=== PATIENT | male | born 1935 | race Caucasian/White ===

== ENCOUNTER 2019-03-02 12:58 | Day surgery (SDC) | payer MEDICARE, BC ==
[~2019-03-02] VITALS: Ht 172.7 cm; Wt 109.5 kg
[2019-03-02] VITALS (10 sets, daily range): BP systolic 138–177; BP diastolic 72–83
[~2019-03-02 12:58] MED LIST: ATOR40TA PO; BACL10TA2 PO; FURO-150 PO; HYT1T PO; LORA-512 PO; MULT-342 PO; OMEP-84 PO; POTA8TAB8 PO; VITC500T PO; meloxicam PO
[2019-03-02] MEDS ORDERED: diphenhydrAMINE 50 mg/ml inj ONE (13:21)
[2019-03-02] MEDS ORDERED: MIDAZolam 5mg/5ml vial ONE (13:21)
[2019-03-02] MEDS ORDERED: meperidine/PF 100mg/ml syringe ONE (13:21)
[2019-03-02] MEDS ORDERED: fentaNYL/PF 50MCG/1 ML 2ML syringe ONE ×2 (13:21→14:32)
[2019-03-02] MEDS ORDERED: glucagon, human recombinant 1mg kit ONE (13:22)
[2019-03-02] MEDS ORDERED: levoFLOXACIN-Levaquin 500mg/D5 100 ML IV ONE (13:22)
[2019-03-02] MEDS ORDERED: LIDOcaine Viscous 15ml cup ONE (13:22)
[2019-03-02] MEDS ORDERED: iohexol 300 MG/1 ML 50ml polymer ONE (13:22)
[2019-03-02 17:44] LABS: BASOPHILS % (AUTO) 0.2 % (0-1); EOSINOPHILS # (AUTO) 0.1 X10'3 (0-0.9); HEMATOCRIT 37.9 % (42.0-52.0); HEMOGLOBIN 12.6 g/dl (14.0-17.9); LYMPHOCYTES # (AUTO) 1.5 X10'3 (1.1-4.8); LYMPHOCYTES % (AUTO) 12.9 % (21-51); MEAN CORPUSCULAR HEMOGLOBIN 30.3 PG (27.0-31.0); MEAN CORPUSCULAR HGB CONC 33.2 g/dL (33.0-36.5); MEAN CORPUSCULAR VOLUME 91.2 FL (78-98); MEAN PLATELET VOLUME 7.5 FL (7.4-10.4); MONOCYTES # (AUTO) 0.9 X10'3 (0-0.9); MONOCYTES % (AUTO) 8.1 % (2-12); NEUTROPHILS % (AUTO) 77.8 % (42-75); PLATELET COUNT 262 X10'3 (140-440); RED BLOOD COUNT 4.15 X10'6 (4.70-6.10); RED CELL DISTRIBUTION WIDTH 16.1 % (11.5-14.5); WHITE BLOOD COUNT 11.6 X10'3 (4.5-11.0)
[2019-03-02 17:55] LABS: ALANINE AMINOTRANSFERASE 73 U/L (12-78); ALBUMIN 1.9 G/DL (3.4-5.0); ALBUMIN/GLOBULIN RATIO 0.4 (1.1-1.5); ALKALINE PHOSPHATASE 602 IU/L (46-116); ANION GAP 4 (8-16); ASPARTATE AMINO TRANSFERASE 147 U/L (10-37); BILIRUBIN,TOTAL 2.3 MG/DL (0.1-1.0); BLOOD UREA NITROGEN 14 MG/DL (7-18); BUN/CREATININE RATIO 15.6 (5.4-32.0); CALCIUM 8.7 MG/DL (8.5-10.1); CHLORIDE 106 MMOL/L (99-107); GLUCOSE 107 MG/DL (70-104); POTASSIUM 4.3 MMOL/L (3.5-5.1); SODIUM 139 MMOL/L (135-145); TOTAL CARBON DIOXIDE 29.4 MMOL/L (24-32); TOTAL PROTEIN 6.2 G/DL (6.4-8.2); eGFR 80 ML/MIN
== END 2019-03-02 18:06 | disposition home or self-care (01) ==
LOC: GI LAB 12:58
PROVIDERS: ATTEND Internal Medicine Gastroenterology
DX: Z46.59 Encounter for fitting and adjustment of other gastrointestinal appliance and device (principal); K83.1 Obstruction of bile duct; K83.8 Other specified diseases of biliary tract
CPT/HCPCS: 36415; 43276; 43277; 80053; 85025; 99152; 99153; C1726; C1769; C1773; J1200; J1610; J1956; J2175; J2250; J3010; J7040; Q9967; A4620